=== PATIENT | female | born 1970 | race Hispanic/Latino ===

== ENCOUNTER 2024-10-05 22:12 | Emergency (ER) | payer OTHER ==
[~2024-10-05] VITALS: Ht 157.5 cm; Wt 73.2 kg
[~2024-10-05 22:12] MED LIST: IBUPROFEN100 MG PO; LEVAQUIN500 MG PO; NORCO 5-325 TA1 EACH PO; VICODIN 5-3001 EACH PO
[2024-10-05] MEDS ORDERED: MORPHINE SULFATE 4 MG/ML VIAL IV ONE (22:30)
[2024-10-05] MEDS ORDERED: SODIUM CHLORIDE 0.9% 1,000 ML IV ONE (22:30)
[2024-10-05] MEDS ORDERED: KETOROLAC TROMETHAMINE 15 MG/ML VIAL IV ONE (22:30)
[2024-10-05 22:32] LABS: BASOPHILS 0.4 % (0.1-1.2); EOSINOPHILS 1.9 % (0.7-5.8); LYMPHOCYTES 32.8 % (19.3-51.7); MCH 26.6 PG (25.6-32.2); MCHC 32.8 g/dL (32.2-35.5); MCV 81.1 fL (79.4-94.8); MONOCYTES 6.1 % (4.7-12.5); NEUTROPHILS 58.6 % (34.0-71.1); RBC 5.03 M/uL (3.93-5.22)
[2024-10-05 22:48] LABS: ALT (SGPT) 23.0 U/L (14-59); AST (SGOT) 18.0 U/L (15-37); GLOMERULAR FILTRATION RATE,EST 79.0 mL/min (>60); PROTEIN, TOTAL 7.9 g/dL (6.4-8.2); UREA NITROGEN 19.0 mg/dL (7-18)
[2024-10-05] MEDS ORDERED: HYDROCODON-ACE1 EA10 PO (23:21)
[2024-10-05] MEDS ORDERED: ONDANSETRON ODT8 MG PO (23:21)
[2024-10-05] MEDS ORDERED: FLOMAX0.4 MG PO (23:21)
[2024-10-05] MEDS ORDERED: TAMSULOSIN HCL 0.4 MG CAP PO ONE (23:45)
[2024-10-05] MEDS ORDERED: ONDANSETRON 4 MG HOME.PACK SL ONE (23:45)
[2024-10-05] MEDS ORDERED: HYDROCODONE BIT/ACETAMINOPHEN 5/325 MG 1 TAB HOME.PACK PO ONE (23:45)
[2024-10-05 23:52] VITALS: BP 141/78
[2024-10-05 23:54] LABS: BLOOD/HGB, URINE MODERATE (Negative); KETONE, URINE TRACE (Negative); LEUK ESTERASE, URINE NEGATIVE (negative); NITRITE, URINE NEGATIVE (negative)
[2024-10-06 00:03] LABS: BACTERIA, URINE RARE /hpf (negative); CASTS, URINE NONE SEEN \\lpf; CRYSTALS, URINE NONE SEEN (0-1+); EPITHELIAL CELLS, URINE SQUAMOUS 2+ /lpf (0-1+)
[2024-10-06 00:04] LABS: REFLEX CULTURE, URINE No (No)
== END 2024-10-05 23:53 | disposition home or self-care (01) ==
LOC: ED 22:12
PROVIDERS: Family Medicine
DX: N13.2 Hydronephrosis with renal and ureteral calculous obstruction (principal); F17.200 Nicotine dependence, unspecified, uncomplicated; Z91.030 Bee allergy status; Z91.018 Allergy to other foods; Z91.09 Other allergy status, other than to drugs and biological substances
CPT/HCPCS: 36415; 74176; 80053; 81001; 85025; 96374; 96375; 99284-25; A9270; J1885; J2270; J2405; J7030